=== PATIENT | female | born 1980 | race Caucasian/White ===

== ENCOUNTER 2020-01-13 11:22 | Inpatient (IN) | payer OTHER ==
--- NOTE | 2020-01-13 11:43 | BHS.RME ---
Substance Use & Tx History - Substance Use History Opiates (Other) Substance amount: percocet 20-40 mg Frequency of use: Daily Substance route: Oral Date of Last Use: 01/11/20 - Last Treatment Treatment type: Substance Use Disorder (ANGUS) Where was last treatment: Detox (2017 she did detox then outpatient and was sober for 2.5 years. Just relapsed 2 months) COWS - Scale Resting Pulse: 0= [place] 80 or Below Sweatin= Chills/Flushing Restless Observation: 5= Unable to Sit Still Pupil Size: 1= Pupils >than Normal Bone or Joint Aches: 2= Severe Diffuse Aches Runny Nose/ Eye Tearin= Runny Nose/Eyes GI Upset > 30mins: 3= Vomiting/Diarrhea Tremor Observation: 2= Slight Tremor Visible Yawning Observation: 2= >3x During Session Anxiety or Irritability: 2=Irritable/Anxious Goose Flesh Skin: 3=Piloerection COWS Score: 23
--- NOTE | 2020-01-13 13:52 | HP ---
COWS - Scale Resting Pulse: 0= [place] 80 or Below Sweatin= Chills/Flushing Restless Observation: 5= Unable to Sit Still Pupil Size: 1= Pupils >than Normal Bone or Joint Aches: 2= Severe Diffuse Aches Runny Nose/ Eye Tearin= Runny Nose/Eyes GI Upset > 30mins: 3= Vomiting/Diarrhea Tremor Observation: 2= Slight Tremor Visible Yawning Observation: 2= >3x During Session Anxiety or Irritability: 2=Irritable/Anxious Goose Flesh Skin: 3=Piloerection COWS Score: 23 CIWA Score - Admission Criteria OASAS Guidelines: Admission for Medically Managed Detox: Requires at least one of the followin. CIWA greater than 12 2. Seizures within the past 24 hours 3. Delirium tremens within the past 24 hours 4. Hallucinations within the past 24 hours 5. Acute intervention needed for co occurring medical disorder 6. Acute intervention needed for co occurring psychiatric disorder 7. Severe withdrawal that cannot be handled at a lower level of care (continued vomiting, continued diarrhea, abnormal vital signs) requiring intravenous medication and/or fluids 8. Admitting History and Physical - Admission Chief Complaint: "I want to detox from oral opioids. I was clean for a long time and I just relapsed." History of Present Illness: 39 year old female with history of opioid dependence on oral percocet 20-40 mg daily. She had a 2.5 year period of sobriety after a detox in 2017 and outpatient treatment. She just relapsed 2 months ago. She was seen with withdrawals at [facility], [place] and given IV fluids and ativan Never smoked. She uses no other substances. She is at high risk for relapse as she has poor support systems and poor recovery environment. She is currently in withdrawals and needs admission for detox.. Admission ROS BHS - HPI Exam Limitations: No Limitations - Ebola screening Have you traveled outside of the country in the last 21 days: No Have you had contact with anyone from an Ebola affected area: No Have you been sick,other than usual withdrawal symptoms: No Do you have a fever: No - Review of Systems Constitutional: No Symptoms Reported EENT: reports: No Symptoms Reported Respiratory: reports: No Symptoms reported Cardiac: reports: No Symptoms Reported GI: reports: No Symptoms Reported : reports: No Symptoms Reported Musculoskeletal: reports: No Symptoms Reported Integumentary: reports: No Symptoms Reported Neuro: reports: No Symptoms reported Endocrine: reports: No Symptoms Reported Hematology: reports: No Symptoms Reported Psychiatric: reports: Judgement Intact, Orientated x3, Agitated, Anxious Other Systems: Reviewed and Negative Patient History - Patient Medical History Hx Anemia: Yes (secondary to lupus) Hx Asthma: No Hx Chronic Obstructive Pulmonary Disease (COPD): No Hx Cancer: No Hx Cardiac Disorders: No Hx Congestive Heart Failure: No Hx Hypertension: No Hx Hypercholesterolemia: No Hx Pacemaker: No HX Cerebrovascular Accident: No Hx Seizures: No Hx Dementia: No Hx Diabetes: No Hx Gastrointestinal Disorders: No Hx Liver Disease: No Hx Genitourinary Disorders: No Hx Sexually Transmitted Disorders: No Hx Renal Disease (ESRD): No Hx Thyroid Disease: No Hx Human Immunodeficiency Virus (HIV): No (last tested 2 weeks ago negative) Hx Hepatitis C: No Hx Depression: Yes (wellbutrin and zoloft abilify, stopped 2 years ago) Hx Suicide Attempt: No Hx Bipolar Disorder: No Hx Schizophrenia: No Other Medical History: TIA 2014 - Patient Surgical History Past Surgical History: Yes Hx Abdominal Surgery: Yes (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 last episode, 2013, 2015 2018) Hx Appendectomy: No Hx Cholecystectomy: No Hx Genitourinary Surgery: No Hx Section: No Hx Orthopedic Surgery: No Hx Hysterectomy: No Other Surgical History: surgeries for intersusception, hernia repairs B/L abdominal Anesthesia Reaction: No - PPD History Previous Implant?: Yes Documented Results: Negative w/o proof Implanted On Prior R Admission?: No Date: 02/24/19 Results: negative PPD to be Administered?: Yes - Smoking Cessation Smoking history: Never smoked Hx Chewing Tobacco Use: No Initiated information on smoking cessation: No - Substances abused Other Other (specify): percocets Substance route: Oral Frequency: Daily Amount used: 20-40 mg daily Age of first use: 24 Date of last use: 01/11/20 Screened but not Admitted - Documentation of Visit Screened but not Admitted: No Urine Drug Screen - Control Is test valid?: Yes - Results Drug screen NEGATIVE: Yes (last used percocet 2 days ago....may be out of system ) Inpatient Rehab Admission - Rehab Decision to Admit Inpatient rehab admission?: No
[2020-01-13] MEDS ORDERED: MAG HYDROX/AL HYDROX/SIMETH 30 ML UNIT-DOSE CUP PO PRN (13:56)
[2020-01-13] MEDS ORDERED: MAGNESIUM HYDROX 2400MG/30ML ORAL SUSPENSION 30 ML CUP PO PRN (13:56)
[2020-01-13] MEDS ORDERED: BISMUTH SUBSALICYLATE 524 MG/30 ML UD PO PRN (13:56)
[2020-01-13] MEDS ORDERED: MENTHOL/PHENOL 1 EACH UD MM PRN (13:56)
[2020-01-13] MEDS ORDERED: IBUPROFEN 400 MG TABLET (FP) PO PRN (13:56)
[2020-01-13] MEDS ORDERED: cloNIDine HCL 0.1 MG TABLET PO PRN (13:56)
[2020-01-13] MEDS ORDERED: MAGNESIUM CITRATE 300 ML BOTTLE PO PRN (13:56)
[2020-01-13] MEDS ORDERED: ACETAMINOPHEN 325 MG TABLET (FP) PO PRN ×2 (13:56)
[2020-01-13 14:45] VITALS: BMI 37.5
[2020-01-13] MEDS ORDERED: METHADONE HCL 10 MG TABLET (FOR DETOX USE ONLY) PO ONE (15:01)
[2020-01-13] MEDS ORDERED: PATIENT'S OWN MEDICATION (NON-FORMULARY) (Adalimumab [Humira] 40 MG) SQ SCH (15:45)
[2020-01-13 17:34] LABS: HEMATOCRIT 41.4 % (32.4-45.2); HEMOGLOBIN 13.8 GM/dL (10.7-15.3); MCH 29.2 pg (25.7-33.7); MCHC 33.2 g/dl (32.0-36.0); MEAN CELL VOLUME 87.8 fl (80-96); MEAN PLT VOLUME 10.3 fl (7.5-11.1); PLATELET COUNT 286 K/MM3 (134-434); RBC 4.72 M/mm3 (3.60-5.2); RDW 15.3 % (11.6-15.6); WHITE BLOOD COUNT 10.6 K/mm3 (4.0-10.0)
[2020-01-13 17:48] LABS: BILIRUBIN,TOTAL 0.8 mg/dL (0.2-1); BLOOD UREA NITROGEN 7.9 mg/dL (7-18); CALCIUM 8.6 mg/dL (8.5-10.1); CREATININE 0.8 mg/dL (0.55-1.3); POTASSIUM 3.7 mmol/L (3.5-5.1); TOT PROT 7.1 g/dl (6.4-8.2)
[2020-01-13] MEDS: MELATONIN 5 MG TABLETS PO PRN (22:32)
[2020-01-13] MEDS: METHOCARBAMOL 500 MG TABLET PO PRN (22:32)
[2020-01-13] MEDS: hydrOXYzine PAMOATE 25 MG CAPSULE (FP) PO PRN (22:32)
[2020-01-13] MEDS: THIAMINE HCL 100 MG TABLET (FP) PO SCH (22:32)
[2020-01-14] MEDS ORDERED: METHADONE HCL 10 MG TABLET (FOR DETOX USE ONLY) PO ONE (10:00)
[2020-01-14] MEDS ORDERED: METHADONE HCL 5 MG TABLET (FOR DETOX USE ONLY) PO ONE (10:00)
[2020-01-14] MEDS ORDERED: PRENATAL VITAMINS W/ FOLIC ACID TABLET (FP) PO SCH (10:00)
[2020-01-14] MEDS: METHOCARBAMOL 500 MG TABLET PO PRN (10:36)
--- NOTE | 2020-01-14 16:42 | CONSULT ---
[facility] Psychiatric Consult - Data Date of interview: 01/14/20 Admission source: [facility] Identifying data: First visit to [facility] and admission to [address] [place] [address] for this 39 y/o female self-referred for detoxification treatment (opiate). Patient is single, mother of one, domiciled and currently employed. Substance Abuse History: Discussed with the patient. Details in current [facility] report as follows : Smoking history: Never smoked. Hx Chewing Tobacco Use: No. Initiated information on smoking cessation: No. Substances abused. Other. Other (specify): percocets. Substance route: Oral. Frequency: Daily. Amount used: 20-40 mg daily. Age of first use: 24. Date of last use: 01/11/20 Medical History: Medical profile is remarkable for systemic lupus erythematosus (self-report), psoriasis, obesity, antecedent of pancreatitis, psoriatic arthritis and history of TIA (transient ischemic attack) in 2013. Allergy to ASA. Psychiatric History: Patient denies history of psychiatric hospitalizations. Has been diagnosed, in the past, with MDD + Anxiety Disorder and medicated with a combination of abilify + sertraline + wellbutrin. Ms Monroe reports that she stopped seeing her psychiatrist (months ago) and dropped out of [facility] care. Stooped taking her medications altogether. She endorses a distant history of suicide attempts via overdose with medications (ages 10 + 13 + 22). Physical/Sexual Abuse/Trauma History: Not discussed. Patient declines. Additional Comment: Negative toxicology. Mental Status Exam - Mental Status Exam Alert and Oriented to: Time, Place, Person Cognitive Function: Good Patient Appearance: Well Groomed (obese) Mood: Hopeful, Euthymic (at time of this interview) Affect: Appropriate, Normal Range Patient Behavior: Appropriate, Cooperative Speech Pattern: Clear, Appropriate Voice Loudness: Normal Thought Process: Intact, Goal Oriented Thought Disorder: Not Present Hallucinations: Denies Suicidal Ideation: Denies Homicidal Ideation: Denies Insight/Judgement: Fair Sleep: Well Appetite: Good Gait/Station: Normal Psychiatric Findings - Problem List ([place] 1, 2,3) (1) Opioid use disorder Current Visit: Yes Status: Chronic (2) History of depression Current Visit: Yes Status: Chronic Comment: Dropped out of psychiatric OPD care months ago. - Initial Treatment Plan Initial Treatment Plan: Interview is conducted with geotechnical engineer, female nursing specialist MS Quiles, in attendance (with patient's verbal authorization). Psychoeducation. Sleep hygiene. Detoxification in progress. Motivational counseling. AA meetings. Observation.
--- NOTE | 2020-01-14 18:05 | PN ---
BHS COWS - Scale Resting Pulse: 0= [place] 80 or Below Sweatin= Chills/Flushing Restless Observation: 1= Difficult to Sit Still Pupil Size: 0= Normal to Room Light Bone or Joint Aches: 0= None Runny Nose/ Eye Tearin= Nasal Congestion GI Upset > 30mins: 0= None Tremor Observation of Outstretched Hands: 0= None Yawning Observation: 1= 1-2x During Session Anxiety or Irritability: 2=Irritable/Anxious Goose Flesh Skin: 0=Smooth Skin COWS Score: 6 BHS Progress Note (SOAP) Subjective: Chills, Anxious, Fatigue. Patient reports that current withdrawal symptoms are mild in degree at this time and they have subsided considerably since time of admission yesterday. Objective: PATIENT A & O X 3, OBSERVED AMBULATING ON DETOX UNIT UNASSISTED. IN NO ACUTE DISTRESS. 01/14/20 18:02 Vital Signs Temperature 99.0 F 01/14/20 08:30 Pulse Rate 76 01/14/20 08:30 Respiratory Rate 18 01/14/20 08:30 Blood Pressure 124/79 01/14/20 08:30 O2 Sat by Pulse Oximetry (%) Laboratory Tests 01/13/20 01/13/20 01/13/20 14:15 14:15 14:15 WBC 10.6 H RBC 4.72 Hgb 13.8 Hct 41.4 MCV 87.8 MCH 29.2 MCHC 33.2 RDW 15.3 Plt Count 286 MPV 10.3 Sodium 142 Potassium 3.7 Chloride 112 H Carbon Dioxide 24 Anion Gap 6 L BUN 7.9 Creatinine 0.8 Est GFR (CKD-EPI)AfAm 106.13 Est GFR (CKD-EPI)NonAf 91.57 Random Glucose 115 H Calcium 8.6 Total Bilirubin 0.8 AST 15 ALT 20 Alkaline Phosphatase 52 Total Protein 7.1 Albumin 4.0 RPR Titer Nonreactive LABS NOTED. Assessment: 01/14/20 18:03 WITHDRAWAL SYMPTOMS. Plan: CONTINUE DETOX. INCREASE DAILY ORAL WATER INTAKE. PATIENT REPORTS THAT CURRENT WITHDRAWAL / DETOX SYMPTOMS ARE MILD IN DEGREE AND THAT SHE IS TOLERATING THEM WELL. AT PATIENT'S REQUEST, CURRENT DETOX MEDICATION REGIMEN MODIFIED SO THAT PATIENT MAY BE DISCHARGED TOMORROW, 2019.
[2020-01-14] MEDS: THIAMINE HCL 100 MG TABLET (FP) PO SCH (22:30)
[2020-01-14] MEDS: MELATONIN 5 MG TABLETS PO PRN (22:30)
[2020-01-14] MEDS: hydrOXYzine PAMOATE 25 MG CAPSULE (FP) PO PRN (23:56)
[2020-01-15] MEDS ORDERED: METHADONE HCL 5 MG TABLET (FOR DETOX USE ONLY) PO ONE (06:00)
[2020-01-15 06:33] VITALS: TEMP 98.2
[2020-01-15 09:28] VITALS: BP 123/77; PULSE 59
[2020-01-15] MEDS ORDERED: METHADONE HCL 10 MG TABLET (FOR DETOX USE ONLY) PO ONE (10:00)
--- NOTE | 2020-01-15 11:06 | DS ---
[facility] Detox Discharge Summary Admission Date: 01/13/20 Discharge Date: 01/15/20 - History Present History: Opioid Dependence Additional Comments: Patient completed detox successfully and discharged safely. Patient to follow up with PCP within 1-2 weeks. Pertinent Past History: SLE as per admission note Anemia as per admission note Opioid dependence Depression - Physical Exam Results Vital Signs: Vital Signs Temperature 98.2 F 01/15/20 08:20 Pulse Rate 59 L 01/15/20 08:20 Respiratory Rate 17 01/15/20 08:20 Blood Pressure 123/77 01/15/20 08:20 O2 Sat by Pulse Oximetry (%) Pertinent Admission Physical Exam Findings: Withdrawal sxs Laboratory Tests 01/13/20 01/13/20 01/13/20 14:15 14:15 14:15 WBC 10.6 H RBC 4.72 Hgb 13.8 Hct 41.4 MCV 87.8 MCH 29.2 MCHC 33.2 RDW 15.3 Plt Count 286 MPV 10.3 Sodium 142 Potassium 3.7 Chloride 112 H Carbon Dioxide 24 Anion Gap 6 L BUN 7.9 Creatinine 0.8 Est GFR (CKD-EPI)AfAm 106.13 Est GFR (CKD-EPI)NonAf 91.57 Random Glucose 115 H Calcium 8.6 Total Bilirubin 0.8 AST 15 ALT 20 Alkaline Phosphatase 52 Total Protein 7.1 Albumin 4.0 RPR Titer Nonreactive Labs reviewed: mild elevated wbc, hyperglycemia: patient to follow up with PCP re: abnormal lab results; patient afebrile, denies DM - Treatment Hospital Course: Detox Protocol Followed, Detoxed Safely, Responded well, Discharged Condition Good - Medication Discharge Medications: Ambulatory Orders Adalimumab [Humira] 40 mg SQ ASDIR 01/13/20 Multivitamin [Multiple Vitamins] 1 each PO DAILY 01/13/20 - Diagnosis (1) History of depression Status: Chronic (2) Opioid use disorder Status: Acute (3) Hyperglycemia Status: Acute (4) Leukocytosis Status: Acute - AMA Did Patient Leave Against Medical Advice: No (Follow up with PCP within 1-2 weeks)
[2020-01-16] MEDS ORDERED: METHADONE HCL 5 MG TABLET (FOR DETOX USE ONLY) PO ONE (06:00)
== END 2020-01-15 09:54 | disposition home or self-care (01) | DRG 773 ==
LOC: YASAS 11:22 → Y6N 14:57
PROVIDERS: ADMIT Allergy & Immunology; ATTEND Allergy & Immunology
PROC: HZ2ZZZZ Detoxification Services for Substance Abuse Treatment (ICD-10-PCS; principal; 2020-01-13)
DX: F11.23 Opioid dependence with withdrawal (principal); F32.9 Major depressive disorder, single episode, unspecified; M32.9 Systemic lupus erythematosus, unspecified; D72.829 Elevated white blood cell count, unspecified; D64.9 Anemia, unspecified; R73.9 Hyperglycemia, unspecified
CPT/HCPCS: 36415; 80053; 85027; 86593